=== PATIENT | male | born 1980 | race Hispanic/Latino ===

== ENCOUNTER 2016-10-18 11:42 | Day surgery (SDC) | payer MEDICARE, MEDICAID ==
[~2016-10-18] VITALS: Ht 185.4 cm; Wt 170.1 kg
--- NOTE | 2016-10-18 07:22 | PCM.HPANE ---
Patient Data Surgeon Admitting Provider: Attending Provider:Matthew Guidry MD Primary Care Physician:Dipika Samuel PA-C Other Provider:Malou Douglasingham Anesthesia Reason for Visit Diarrhea Ht/WT & BMI Body Mass Index Allergies Coded Allergies: No Known Allergies (Verified Allergy, Unknown, 10/17/16) Medications Reported Medications Quetiapine Fumarate 400 Mg [id number] Mg PO HS Ref 0 10/18/16 Prazosin 5 Mg Wkrbjdx16 Mg PO HS 10/18/16 Losartan Potassium 50 Mg Fqhhkm47 Mg PO 10/18/16 Fluoxetine (Prozac)40 Mg Ntgfsnx33 Mg PO DAILY Ref 0 10/17/16 Propranolol HCl 40 Mg Czalpc90 Mg PO BID Ref 0 10/17/16 Dicyclomine (Bentyl)10 Mg Odzrlqd58 Mg PO QID PAIN 10/17/16 Stop/Bang NEHEMIAS Risk Assessment: Low Risk, <3 Yes Risk Assessment Category Category 1A: Patient has history of documented sleep apnea, and HAS NOT received any narcotic, sedative or anesthesia administration during this stay. Category 1B: Patient has history of documented sleep apnea, and HAS received any narcotic , sedative or anesthesia administration during this stay Category 2: Patient has SUSPECTED Obstructive Sleep Apnea, and HAS received any narcotic , sedative or anesthesia administration during this stay. Category 3: Patient has SUSPECTED Obstructive Sleep Apnea and HAS NOT received narcotic, sedative or anesthesia administration during this stay. Category 4: Outpatient in Procedural Areas with known sleep apnea or who screen positive for High Risk via the STOP/BANG questionnaire. Exam Exam General Appearance: Alert, Oriented X3, Cooperative, No Acute Distress HEENT/AIRWAY: MP 2 Lungs: Clear to Auscultation, Normal Air Movement Heart: Exam Unremarkable, Regular Rate/Rhythm, No Murmurs/Rubs/Gallops Plan Impression Patient chart reviewed, patient interviewed and anesthestic plan with risks, benefits, and alternatives discussed, and informed consent obtained. ASA Physical Status: ASA2 Mod Systemic Disease Anesthetic Plan: MAC Bene/Risks/Altern/Consents: Yes HP Complete Prior to Induction: Yes Other obese, shizophrenic Tamiko Ferrer MD Oct 18, 2016 07:22
[~2016-10-18 11:42] MED LIST: DICY10CA56 PO; FLUO40CA12 PO; PROP40TA5 PO
[2016-10-18] MEDS ORDERED: Propofol 10,000 mCg/mL 20 mL Inj ONE (11:43)
[2016-10-18] MEDS ORDERED: fentaNYL-PF 50 mCg/mL 2 mL Inj ONE (11:43)
[2016-10-18] MEDS ORDERED: QUET400T35 PO (12:03)
[2016-10-18] MEDS ORDERED: LOSA50TA37 PO (12:03)
[2016-10-18] MEDS ORDERED: PRAZ5CAP3 PO (12:03)
[2016-10-18 12:10] VITALS: BP 146/82; PULSE 72; RESP 16; O2SAT 96
[2016-10-18] MEDS: Lactated Ringer's 1,000 ML IV ONE ×2 (12:25→12:33)
[2016-10-18] MEDS ORDERED: Lactated Ringer's 1,000 ML IV SCH (12:38)
--- NOTE | 2016-10-18 12:38 | PCM.ANEP1 ---
Post Anesthesia Phase 1 PACU Phase 1 Assessment Vital Signs Vital Signs Date Time Temp Pulse Resp B/P Pulse Ox O2 Delivery O2 Flow Rate FiO2 10/18/16 12:10 72 16 146/82 96 Room Air Anesthetic Administered: MAC Level of Alertness: Awake, talking SOMERS's with Equal Strength: Yes Pain: No Nausea or Vomiting: No Oxygen Delivery: Nasal Cannula Lungs: Clear to Auscultation, Normal Air Movement Tamiko Ferrer MD Oct 18, 2016 12:38
[2016-10-18 12:40] VITALS: BP 144/84; PULSE 72; RESP 16; O2SAT 96
[2016-10-18] MEDS ORDERED: MetoCLOpramide 5 mg/mL 2 mL Inj IVPUSH PRN (12:40)
[2016-10-18] MEDS ORDERED: Ondansetron 2 mg/mL 2 mL Inj IVPUSH PRN (12:40)
[2016-10-18 12:49] VITALS: BP 132/79; PULSE 75; RESP 16; O2SAT 96
--- NOTE | 2016-10-18 13:18 | ENDO ---
[address] [address] ENDOSCOPY PROCEDURE PATIENT: MYKE CROCKETT : 1980 MR#: [id number] ADMIT: 10/18/2016 JOB ID: [id number] DATE: 10/18/2016 TYPE OF OPERATION: Colonoscopy with biopsy. PREOPERATIVE DIAGNOSIS(ES): Diarrhea. POSTOPERATIVE DIAGNOSIS(ES): Normal colonoscopy status post biopsy. ANESTHESIA: Monitored anesthesia care. COMPLICATIONS: None. BLOOD LOSS: Minimal. DESCRIPTION OF PROCEDURE: After risks and benefits were explained to the patient, informed consent was obtained. After anesthesia administered, colonoscope was inserted per the rectum to the terminal ileum. Mucosa carefully examined. Prep of the patient was excellent. After procedure was done, the scope was withdrawn and procedure terminated. FINDINGS: Upon inspection of the anus, no masses, hemorrhoids, ulcers, fissures that were seen. Throughout the entire examination, there were no polyps, masses or lesions. Biopsy taken from terminal ileum and random colon. Retroflexion was normal. IMPRESSIONS: Normal colonoscopy status post biopsy. RECOMMENDATION: 1. Await pathology results. 2. Followup in GI clinic as needed.
--- NOTE | 2016-10-18 13:22 | PCM.ANEP2 ---
Post Anesthesia Evaluation ASA/CMS Post Anesthesia VS in Patient's Normal Range?: Yes Resp Stable; Airway Patent?: Yes CV Function & Hydration Stable: Yes Mental Status Recovered?: Yes Pain control Satisfactory?: Yes N/V Control Satisfactory?: Yes Tamiko Ferrer MD Oct 18, 2016 13:22
--- NOTE | 2016-10-19 14:04 | PATH ---
SURGICAL PATHOLOGY Attending Physician:Matthew Guidry MD CASE STATUS: Signed Out PATIENT NAME: MYKE CROCKETT PID: [id number] : 1980 DATE COLLECTED:10/18/2016 21:30 SPECIMEN: 1: Ileum, Biopsy 2: Colon, Biopsy CLINICAL HISTORY: DIARRHEA 1). TERMINAL ILEUM BIOPSY 2). RANDOM COLON BIOPSY FINAL DIAGNOSIS: 1.TERMINAL ILEUM BIOPSY: ILEAL MUCOSA WITH NO DIAGNOSTIC ALTERATIONS. NEGATIVE FOR INFLAMMATION, GRANULOMAS, DYSPLASIA, AND MALIGNANCY. 2.RANDOM COLON BIOPSY: COLONIC MUCOSA WITH NO DIAGNOSTIC ALTERATIONS. NEGATIVE FOR INFLAMMATION, DYSPLASIA, AND MALIGNANCY. ICD10 CODE R19.7 GROSS DESCRIPTION: The specimen is received in two formalin filled containers labeled with the patient's name. 1). The specimen is sublabeled "terminal ileum" and consists of a 0.4 x 0.3 x 0.2 CM portion of tissue which is entirely submitted in cassette 1A. 2). The specimen is sublabeled "cyst random colon" and consists of multiple portions of tissue which aggregate to 0.5 x 0.5 x 0.4 CM. The specimen is entirely submitted in cassette 2A. 10/18/2016 [facility] MICRO DESCRIPTION: See diagnosis. ICD-9 CODES: CPT CODES: 1: 43752 2: 75659 Electronically Signed Out Sara Miranda MD [facility] Pathology [facility], [place] [address] Technical component performed at [facility], [address] [place] [address] [address], [place], [address]
== END 2016-10-18 23:59 | disposition home or self-care (01) ==
LOC: END 11:42 → EDUNIT# 13:15 → END 23:59
PROVIDERS: ATTEND Internal Medicine Gastroenterology
DX: R19.7 Diarrhea, unspecified (principal); Z79.899 Other long term (current) drug therapy